=== PATIENT | male | born 1995 | race Caucasian/White ===

== ENCOUNTER 2018-01-07 23:07 | Emergency (ER) | payer OTHER ==
[2018-01-07 23:07] VITALS: BMI 50.1
[2018-01-07 23:13] VITALS: BP 132/83; PULSE 74; RESP 16; TEMP 97.8; O2SAT 100
--- NOTE | 2018-01-07 23:26 | C.PDOC ---
History Of Present Illness 22 year old male presents to ED with complaints of right shoulder pain after feeling it pop when pulling open heavy metal door tonight. He states friend popped it back in place, feels better but has pain with movement. He denies any prior shoulder dislocations or any other injury. Denies any numbness or weakness to extremity Time Seen by Provider: 01/07/18 23:15 Chief Complaint (Nursing): Upper Extremity Problem/Injury History Per: Patient History/Exam Limitations: no limitations Onset/Duration Of Symptoms: Days Current Symptoms Are (Timing): Still Present Quality: "Pain" Past Medical History Reviewed: Historical Data, Nursing Documentation, Vital Signs Vital Signs: Last Vital Signs Temp 97.8 F 01/07/18 23:09 Pulse 74 01/07/18 23:09 Resp 16 01/07/18 23:09 BP 132/83 01/07/18 23:09 Pulse Ox 100 01/07/18 23:49 - Medical History PMH: No Chronic Diseases Surgical History: No Surg Hx Family History: States: Unknown Family Hx - Social History Hx Tobacco Use: No Hx Alcohol Use: No Hx Substance Use: No - Immunization History Hx Tetanus Toxoid Vaccination: Yes Hx Influenza Vaccination: Yes Hx Pneumococcal Vaccination: Yes Review Of Systems Except As Marked, All Systems Reviewed And Found Negative. Musculoskeletal: Positive for: Shoulder Pain Physical Exam - Physical Exam Appears: Well Skin: Warm, Dry Head: Atraumatic, Normacephalic Eye(s): bilateral: Normal Inspection, EOMI Neck: Normal ROM Chest: Symmetrical Extremity: No Normal ROM (pain with abduction of right arm), Tenderness ( anterior right shoulder), No Deformity, No Swelling Neurological/Psych: Oriented x3, Normal Speech ED Course And Treatment O2 Sat by Pulse Oximetry: 100 Medical Decision Making Medical Decision Making: Impression: Shoulder injury Plan: Xray shoulder and Motrin, Ice pack Progress: Xray viewed by me showing no fracture or dislocation. Arm sling applied Re-Eval: Recommend analgesics as needed. Patient instructed to follow up with orthopedic. Disposition - Disposition Referrals: Iesha Marroquin MD [Staff Provider] - Disposition: HOME/ ROUTINE Disposition Time: 00:30 Condition: GOOD Additional Instructions: Please follow up with your road mender or clinic in 2-5 days for further evaluation. Give your child medications as prescribed. Return to the emergency department at any time if symptoms persist or worsen. Instructions: Shoulder Pain (DC) Forms: [facility] (Azeri) - POA Present On Arrival: None - Clinical Impression Clinical Impression: Shoulder strain
--- NOTE | 2018-01-08 08:27 | RAD ---
PROCEDURE: Radiographs of the Right Shoulder HISTORY: shoulder pain s.p injury COMPARISON: No prior. FINDINGS: BONES: Normal. No fracture. JOINTS: Normal. Glenohumeral and acromioclavicular joints preserved. No osteoarthritis. SOFT TISSUES: Normal. OTHER FINDINGS: None. IMPRESSION: Normal radiographs of the right shoulder.
== END 2018-01-08 00:37 | disposition home or self-care (01) ==
LOC: C.ER 23:07
DX: S46.911A Strain of unspecified muscle, fascia and tendon at shoulder and upper arm level, right arm, initial encounter (principal); X58.XXXA Exposure to other specified factors, initial encounter

== ENCOUNTER 2018-11-19 09:47 | Emergency (ER) | payer OTHER ==
[2018-11-19 09:47] VITALS: BMI 50.1
[2018-11-19 10:00] VITALS: BP 127/69; PULSE 103; RESP 18; TEMP 98.9; O2SAT 97
--- NOTE | 2018-11-19 10:45 | C.PDOC ---
History Of Present Illness Mr. Lewis is a 23 year old male with no significant past medical history who presents with complaints of headache and neck swelling that began 3AM today. Patient states he has had headaches like this in the past that resolved with rest. He has never had the neck swelling before. He describes the headache has headband like and pounding. He states "It feels like my brain is swimming in my head". He has not used any modalities or medications for his symptoms. He denies any Auras, sound sensitivity, nausea, vision changes, or tearing of the eye. He does admit to photosensitivity. He also denies any fevers, chills, night sweats, recent weight loss, chest pain, vomiting, recent URI, changes in bowel habits, or any urinary symptoms. He denies any motor or sensory loss. ROS: As stated above PMHx:Denies PSHx: Tonsillectomy about 12 years ago Allergies: NKDA SocialHx: Denies tobacco. Social EtoH USe, Denies illicit Drug use FamHx: Denies Meds: Denies PMD: Dr. Diego Marcelo Time Seen by Provider: 11/19/18 10:16 Chief Complaint (Nursing): Headache History Per: Patient Past Medical History Vital Signs: Last Vital Signs Temp 98.9 F 11/19/18 09:59 Pulse 103 H 11/19/18 09:59 Resp 18 11/19/18 09:59 BP 127/69 11/19/18 09:59 Pulse Ox 97 11/19/18 09:59 Surgical History: Tonsillectomy Family History: States: Unknown Family Hx - Social History Hx Tobacco Use: No Hx Alcohol Use: No Hx Substance Use: No - Immunization History Hx Tetanus Toxoid Vaccination: Yes Hx Influenza Vaccination: Yes Hx Pneumococcal Vaccination: Yes Review Of Systems Except As Marked, All Systems Reviewed And Found Negative. (As per HPI) Physical Exam - Physical Exam Appears: Well, Non-toxic, No Acute Distress Skin: Normal Color, Warm, Dry, No Diaphoretic, No Pale, No Rash, No Jaundice Head: Atraumatic, Normacephalic, No Tenderness, No Swelling, No Abrasion Eye(s): bilateral: Normal Inspection, PERRL, EOMI Ear(s): Bilateral: Normal Nose: Normal, No Discharge, No Epistaxis, No Deformity, No Tenderness, No Septal Hematoma Tongue: Normal Appearing Lips: Normal Appearing Teeth: Normal Dentition Gingiva: Normal Appearing Throat: Normal Neck: Normal Lymphatic: Adenopathy (Anterior Cervical R>L, Tender. ) Cardiovascular: Rhythm Regular, No Edema Respiratory: Normal Breath Sounds, No Accessory Muscle Use, No Rales, No Rhonchi, No Stridor, No Wheezing Gastrointestinal/Abdominal: Normal Exam, Bowel Sounds, Soft, No Tenderness Neurological/Psych: Oriented x3, Normal Speech, Normal Cognition, Normal Cranial Nerves, Normal Motor, Normal Sensation Gait: Steady ED Course And Treatment O2 Sat by Pulse Oximetry: 97 Medical Decision Making Medical Decision Making: Headache Likely Tension Headache Mgmt: Ibuprofen Lymphadenothy Mild, likely 2/2 to viral infection Will DC patient with Ibuprofen. Patient warned about the side-effects of Ibuprofen including GI Bleeding. Patient told to follow up with his regular physician within 2-3 days of leaving the ED. He was told he should make appointment today if possible. Disposition - Disposition Referrals: Diego Marcelo MD [Medical Doctor] - Disposition: HOME/ ROUTINE Disposition Time: 11:28 Condition: GOOD Additional Instructions: Please follow up with your primary physician within 2-3 days of discharge. Prescriptions: Ibuprofen [Motrin Tab] 800 mg PO TID PRN #[id number] tab PRN Reason: Headache Instructions: Tension Headache (DC), Lymphadenitis (DC) Forms: [facility] (Filipino) - POA Present On Arrival: None - Clinical Impression Clinical Impression: Tension headache, Cervical lymphadenopathy
== END 2018-11-19 12:07 | disposition home or self-care (01) ==
LOC: C.ER 09:47
DX: G44.209 Tension-type headache, unspecified, not intractable (principal); R59.1 Generalized enlarged lymph nodes